=== PATIENT | female | born 1940 | race African-American/Black ===

== ENCOUNTER 2016-04-27 09:49 | Emergency (ER) | payer MEDICARE ==
--- NOTE | ~2016-04-27 | EKG ---
PATIENT: BETTY KIMBROUGH UNIT #: [id number] Ventricular Rate: 62 BPM Atrial Rate: 62 BPM P-R Interval: 138 ms QRS Duration: 84 ms Q-T Interval: 400 ms QTC Calculation(Bezet): 406 ms P [place]: 78 degrees Calculated R [place]: 4 degrees Calculated T [place]: 37 degrees Diagnosis Line: Normal sinus rhythm Diagnosis Line: Normal ECG Diagnosis Line: When compared with ECG of 05-OCT-2014 12:53, Diagnosis Line: No significant change was found Diagnosis Line: Confirmed by CAROLINE RAY MD ([id number]) on 04/28/2016 Diagnosis Line: 7:01:37 AM INTERPRETING MD: CORY MAGALLANES
[~2016-04-27 09:49] MED LIST: ACETAMINOPHEN500 M2 PO; ACETAMINOPHEN650 M4 PO; AMLODIPINE BESYL5 MG PO; CENTRUM PO; FLAGYL PO; IRON325 ( 651 PO; LABETALOL HCL200 MG PO; LEVAQUIN PO; LEVEMIR100 U/ML SUBQ; LISINOPRIL2.5 MG PO; METFORMIN HCL500 M1 PO; NAPROXEN PO; NORMODYNE PO; NORVASC PO; NOVOLOG7030 SUBQ; PRAVASTATIN SOD10 MG PO; TRIAMTERENE-HCT1 TA6 PO; WOMEN'S DAILY1 EACH PO; ZESTRIL2.5 M1 PO
[2016-04-27 09:54] LABS: EOSINOPHIL# 0.1 X10e3 (0-0.7); EOSINOPHIL% 2.6 % (0.0-7.0); HEMATOCRIT 34.8 % (35.0-45.0); HEMOGLOBIN 10.9 gm/dL (12.0-16.0); LYMPHOCYTE# 0.7 X10e3 (1.0-3.5); LYMPHOCYTE% 15.4 % (17.0-45.0); MEAN CELL VOLUME 79.9 FL (83-96); MEAN CORPUSCULAR HEMOGLOBIN 25.1 PG (28-34); MEAN CORPUSCULAR HGB CONC 31.4 g/dL (30-36); MEAN PLATELET VOLUME 7.9 FL (6.5-11.5); MONOCYTE# 0.4 X10e3 (0-1.0); MONOCYTE% 8.6 % (3.0-12.0); NEUTROPHIL# 3.4 X10e3 (1.5-7.1); NEUTROPHIL% 72.4 % (40-75); PLATELET COUNT 187 X10e3 (140-420); RED BLOOD COUNT 4.36 X10e (3.90-5.30); WHITE BLOOD COUNT 4.6 X10e3 (4.0-10.5)
[2016-04-27 09:59] LABS: DIFF IND NO
[2016-04-27 10:03] LABS: POC - CKMB 1.7 ng/mL (0.0-7.9); POC - TROPONIN <0.05 ng/mL (<=0.05)
[2016-04-27 10:09] LABS: URINE SOURCE CLEAN CATCH
[2016-04-27 10:13] LABS: URINE APPEARANCE CLEAR; URINE BILIRUBIN NEG (NEG); URINE BLOOD 1+ (NEG); URINE COLOR YELLOW; URINE GLUCOSE 100 MG/DL (NEG); URINE KETONE NEG (NEG); URINE LEUKOCYTE ESTERASE 2+ (NEG); URINE NITRATE NEG (NEG); URINE PROTEIN NEG (NEG); URINE SPECIFIC GRAVITY 1.012 (1.003-1.035); URINE UROBILINOGEN 0.2 MG/DL (NEG)
[2016-04-27 10:16] LABS: URINE BACTERIA AUWI NEG (NEGATIVE); URINE SQUAMOUS EPITHELIAL CELL OCC /[HPF]
[2016-04-27 10:34] LABS: ALBUMIN SERUM 3.8 g/dL (3.5-5.0); ALKALINE PHOSPHATASE 64 U/L (32-92); ALT (SGPT) 16 U/L (10-40); AST (SGOT) 18 U/L (10-42); BILIRUBIN, DIRECT 0.2 mg/dL (0.0-0.2); BILIRUBIN,INDIRECT 0.7 mg/dL (0.0-0.9); BILIRUBIN,TOTAL 0.9 mg/dL (0.2-2.0); BLOOD UREA NITROGEN 11 mg/dL (9-23); BUN/CREATININE RATIO 12.22; CALCIUM SERUM 9.1 mg/dL (8.4-10.2); CARBON DIOXIDE 26 mmol/L (22-31); CHLORIDE 103 mmol/L (100-111); CREATININE SERUM 0.9 mg/dL (0.6-1.4); GLOM FILT RATE Estimated ABOVE60 mL/min (>60); GLUCOSE FASTING 202 mg/dL (70-110); POTASSIUM 3.7 mmol/L (3.5-5.1); PROTEIN TOTAL SERUM 7.3 g/dL (6.0-8.3); SODIUM 135 mmol/L (135-145)
[2016-04-27 10:41] LABS: CULTURE INDICATED? YES
== END 2016-04-27 11:20 | disposition home or self-care (01) ==
LOC: CED 09:49
PROVIDERS: Emergency Medicine
DX: I10 Essential (primary) hypertension (principal); E11.9 Type 2 diabetes mellitus without complications; K21.9 Gastro-esophageal reflux disease without esophagitis; E78.5 Hyperlipidemia, unspecified
CPT/HCPCS: 36415; 80048; 80076; 81003; 82553; 82947; 84484; 85025; 87086; 93005; 96360; 99284